=== PATIENT | male | born 1980 ===

== ENCOUNTER 2017-02-07 20:22 | Emergency (ER) | payer MEDICAID ==
[2017-02-07 20:37] VITALS: PULSE 70; RESP 17; TEMP 98.7; O2SAT 98
--- NOTE | 2017-02-07 21:14 | ED PDOC ---
Lower Extremity Pain/Injury Time Seen by Provider: 02/07/17 20:40 Chief Complaint (Nursing): Lower Extremity Problem/Injury Chief Complaint (Provider): Left knee pain History Per: Patient History/Exam Limitations: no limitations Onset/Duration Of Symptoms: Days (4) Current Symptoms Are (Timing): Still Present Severity: Moderate Additional History Per: Patient Additional Complaint(s): The pt is a 36yo male with no pertinent PMHx, presents to the ED for evaluation of left knee pain for the past 4 days. Pt reports he was playing soccer and might have twisted his knee - states he heard a "pop" at time of injury. Additionally reports pain is worse with movement and bending of knee and is more prominent on the back of his knee. Denies any numbness or tingling and use of pain medications. Offers no additional medical complaints. - Knee Description Of Injury: Twisted Past Medical History Reviewed: Historical Data, Nursing Documentation, Vital Signs Vital Signs: Last Vital Signs Temp 98.7 F 02/07/17 20:33 Pulse 70 02/07/17 20:33 Resp 17 02/07/17 20:33 BP 151/95 H 02/07/17 20:33 Pulse Ox 98 02/07/17 20:33 - Medical History PMH: No Chronic Diseases - Surgical History Surgical History: No Surg Hx - Family History Family History: States: Unknown Family Hx - Home Medications Home Medications: Ambulatory Orders Medication Instructions Recorded Ibuprofen [Motrin] 600 mg PO Q6 #20 tab 02/07/17 - Allergies Allergies/Adverse Reactions: Allergies Allergy/AdvReac Type Severity Reaction Status Date / Time No Known Allergies Allergy Verified 02/07/17 21:15 Review of Systems ROS Statement: Except As Marked, All Systems Reviewed And Found Negative Musculoskeletal: Positive for: Leg Pain (left knee pain) Physical Exam - Reviewed Nursing Documentation Reviewed: Yes Vital Signs Reviewed: Yes - Physical Exam Appears: Positive for: Well, Non-toxic, No Acute Distress Head Exam: Positive for: ATRAUMATIC, NORMAL INSPECTION, NORMOCEPHALIC Skin: Positive for: Normal Color Cardiovascular/Chest: Positive for: Regular Rate, Rhythm Respiratory: Negative for: Respiratory Distress Extremity: Positive for: Normal ROM (limited due to pain), Other (Anterior and posterior draw signs both negative.) Neurologic/Psych: Positive for: Alert, Oriented - ECG O2 Sat by Pulse Oximetry: 98 (RA) Pulse Ox Interpretation: Normal Medical Decision Making Medical Decision Making: Time: 2100 Impression: Knee injury Plan: -- XR Left knee -- Pt declines pain meds --Reassess XR: NAD, as read by CORONA Pt placed in knee immobilizer and instructed in crutch training by aviation survival technician Scribe Attestation: All records were documented by Paulina Colon, acting as a Scribe for KEM Fontenot. Provider Scribe Attestation: All medical record entries made by the Scribe were at my direction and personally dictated by me. I have reviewed the chart and agree that the record accurately reflects my personal performance of the history, physical exam, medical decision making, and the department course for this patient. I have also personally directed, reviewed, and agree with the discharge instructions and disposition. Disposition - Clinical Impression Clinical Impression: Knee pain, Knee sprain - Patient ED Disposition Is Patient to be Admitted: No - Disposition Disposition: Routine/Home Disposition Time: 22:50 Condition: STABLE Prescriptions: Ibuprofen [Motrin] 600 mg PO Q6 #20 tab Instructions: Knee Sprain (ED) Forms: [facility] ED School/Work Excuse
[2017-02-07 22:44] VITALS: BP 138/80
--- NOTE | 2017-02-08 10:27 | RAD ---
PROCEDURE: Left Knee Radiographs. HISTORY: COMPARISON: None available FINDINGS: BONES: No acute displaced fracture. JOINTS: No dislocation. JOINT EFFUSION: Small suprapatellar joint effusion. OTHER FINDINGS: None. IMPRESSION: Small suprapatellar joint effusion.
== END 2017-02-07 22:43 | disposition home or self-care (01) ==
LOC: H.ER 20:22
DX: M25.462 Effusion, left knee (principal)